=== PATIENT | female | born 1990 | race Caucasian/White ===

== ENCOUNTER 2018-02-11 14:15 | Emergency (ER) | payer OTHER ==
[~2018-02-11] VITALS: Ht 160 cm; Wt 50.6 kg
[2018-02-11 14:21] VITALS: BP 101/70
[2018-02-11] MEDS ORDERED: PROPARACAINE OPHTH 0.5%, 15ML EACHEYE ONE (14:30)
[2018-02-11] MEDS ORDERED: FLUORESCEIN OPHTHALMIC 1 MG STRIP EACHEYE ONE (14:30)
[2018-02-11] MEDS ORDERED: PROPARACAINE OPHTH 0.5%, 15ML ONE (14:34)
== END 2018-02-11 15:13 | disposition home or self-care (01) ==
LOC: ED 15:10
DX: H10.31 Unspecified acute conjunctivitis, right eye (principal)
CPT/HCPCS: 99283

== ENCOUNTER → 2018-02-12 | Outpatient (CLI) | payer OTHER | END | disposition home or self-care (01) | LOC: RAD 13:15 | PROVIDERS: ATTEND Ophthalmology | DX: R05 Cough (principal) | CPT/HCPCS: 71046 ==